=== PATIENT | female | born 1995 | race Caucasian/White ===

== ENCOUNTER 2023-11-17 14:58 | Emergency (ER) | payer MEDICAID, OTHER ==
[~2023-11-17] VITALS: Ht 160 cm; Wt 63.5 kg
[2023-11-17 15:22] VITALS: BP 133/87; TEMP 98.5
[2023-11-17] MEDS ORDERED: CYCL10TA9 PO (16:04)
[2023-11-17] MEDS ORDERED: IBUP-1490 PO (16:04)
[2023-11-17 16:09] VITALS: O2SAT 100
== END 2023-11-17 16:10 | disposition home or self-care (01) ==
LOC: ER 15:10
DX: R51.9 Headache, unspecified (principal); M54.9 Dorsalgia, unspecified; Z79.1 Long term (current) use of non-steroidal anti-inflammatories (NSAID); Z79.899 Other long term (current) drug therapy; V49.9XXA Car occupant (driver) (passenger) injured in unspecified traffic accident, initial encounter; Y93.89 Activity, other specified; Y92.89 Other specified places as the place of occurrence of the external cause; Y99.8 Other external cause status

== ENCOUNTER 2024-01-06 17:49 | Emergency (ER) | payer OTHER ==
[~2024-01-06 17:49] MED LIST: CYCL10TA9 PO; IBUP-1490 PO
== END 2024-01-06 18:40 | disposition left against medical advice (07) ==
LOC: ER 17:49
DX: Z53.21 Procedure and treatment not carried out due to patient leaving prior to being seen by health care provider (principal)